=== PATIENT | male | born 1970 | race Caucasian/White ===

== ENCOUNTER 2018-04-08 16:46 | Observation (INO) ==
[2018-04-08 17:15] LABS: Hematocrit 49.5 % (42.0-52.0); Hemoglobin 18.1 gm/dL (13.5-18.0); Mean Cell Volume 83.5 fl (78-100); Mean Corpuscular Hemoglobin 30.5 pg (27-31); Mean Corpuscular Hgb Conc 36.6 g/dl (32-36); Mean Platelet Volume 8.9 fl (8-11.3); Neutrophil # 8.1 K/mm3 (1.3-6.0); Neutrophil % 70.4 % (42-75.0); Platelet Count 165 K/mm3 (150-450); Red Blood Count 5.93 M/mm3 (4.7-6.0); Red Cell Distribution Width 12.8 % (11.5-14.0); White Blood Count 11.5 K/mm3 (4.0-10.5)
[2018-04-08] MEDS ORDERED: ASPIRIN 81 MG TAB.CHEW PO ONE (17:25)
[2018-04-08] MEDS ORDERED: NITROGLYCERIN 0.4 MG/TAB BTL SL ONE ×3 (17:25→17:52)
[2018-04-08 17:26] LABS: Prothrombin Time (Patient) 10.7 Seconds (9.0-11.0)
[2018-04-08 17:32] LABS: ALT 73 U/L (19-67); AST 39 U/L (0-48); Albumin * 4.2 gm/dl (3.4-5.0); Alkaline Phosphatase * 79 U/L (50-170); Anion Gap 15.1 mmol/L (6.8-13.8); BUN/Creatinine Ratio 18.9 (9.0-21.6); Blood Urea Nitrogen 14 mg/dL (6-23); Ca. Corrected For Albumin 8.6 mg/dL (8.4-10.2); Calcium * 9.1 mg/dL (7.9-10.9); Carbon Dioxide 23.7 mmol/L (24-32.6); Chloride 102 mmol/L (97-106); Glucose * 231 mg/dL (70-110); Potassium 3.8 mmol/L (3.4-4.6); Sodium 137 mmol/L (132-142); Total Protein 7.6 gm/dL (6.2-8.2)
[2018-04-08 17:33] LABS: Troponin I Less than 0.017 ng/mL (0.00-0.10)
--- NOTE | 2018-04-08 17:33 | ERNOTE ---
Chest Pain/Cardiac HPI Chief Complaint: Chest Pain Time Seen by Provider: 04/08/18 17:19 Source: patient Exam Limitations: no limitations Immunizations: IMMUNIZATION HX Immunizations Up to Date Yes History of Influenza Vaccine No Hx Pneumococcal Vaccination No Allergies/Adverse Reactions: Allergies No Known Allergies Allergy (Verified 03/16/18 12:16) Home Medications: HOME MEDICATIONS glipizide 5 mg tablet 5 mg PO BID 03/16/18 [Last Taken Unknown] metformin 1,000 mg tablet 1,000 mg PO BID 03/16/18 [Last Taken Unknown] Sildenafil Citrate [Viagra] 25 mg PO PRN PRN 04/08/18 [Last Taken Unknown] Narrative: Patient has had chest pain on and off for about a week, the pain had resolved intermittently but started today at 11:00 and has stayed since, rates it at 4/10 (the worst it has been), pressure like, with radiation to his shoulder, slight nausea and shortness of breath. He never had a cardiac evaluation, has not taken viagra since 03/30. He saw a urologist for a genital rash earlier today, not sure about the diagnosis but he is being treated with a cream. Date (Duration): 04/08/18 Time (Timing): 11:00 Timing: constant, getting worse Severity/Quality: moderate, pressure Location: central Chest Pain Radiation: shoulders Activities at Onset: none Modifying Factors - Improves: Present: nothing. Absent: breathing, position, movement, rest Modifying Factors - Worsens: Present: nothing Nitro Today/Relief: no nitro taken today Aspirin Treatment Today: no aspirin today Associated Symptoms: Present: nausea. Absent: headache, dizziness, shortness of breath, vomiting, abdominal pain, weakness Prior Chest Pain/Cardiac Workup: Reports: prior chest pain - years ago, no prior cardiac workup Prior Treatment: Reports: recently seen, currently on antibiotics Review of Systems - Review of Systems Constitutional: Absent: recent illness, fever, chills ENT: Absent: nose congestion, sore throat Respiratory: Absent: shortness of breath Cardiology: Present: chest pain. Absent: palpitations Gastrointestinal/Abdominal: Present: nausea. Absent: vomiting, diarrhea, abdominal pain Genitourinary: Present: See HPI, other Musculoskeletal: Absent: back pain Neurological: Absent: headache Medical History (Last Reviewed 04/08/18 @ 17:31 by Gertrudis Armenta MD) Constipation Onset Date: Unknown Diabetes type 2, controlled Onset Date: Unknown Skin cancer Onset Date: Unknown Surgical History: Surgical History (Last Reviewed 04/08/18 @ 17:31 by Gertrudis Armenta MD) Previous back surgery Onset Date: Unknown Family History: Family History (Last Reviewed 04/08/18 @ 16:54 by Danny Cordova RN) Mother Cancer Grandfather Cancer Social History: Preferred Language [place] Islander Smoking Status Former smoker Abuse History No History of abuse Psych History No pertinent hx Alcohol Use occasionally Drug Use none (Last Updated 03/16/18 @ 13:16 by DEVANG Gupta) No Social History Section defined Physical Exam - Physical Exam General Appearance: Present: wd/wn, alert, no apparent distress Head Exam: Present: normal inspection Eye Exam: Normal inspection: bilateral Ears, Nose, Throat: Present: normal pharynx Respiratory: Present: no respiratory distress, normal breath sounds, no accessory muscle use, chest nontender, lungs clear Cardiovascular/Chest: Present: regular rate, rhythm, no murmur Gastrointestinal/Abdominal: Present: nontender Extremity Exam: Present: no edema Neurological Exam: Present: alert, oriented, normal mood/affect Skin Exam: Present: normal color, warm/dry Progress - Results and Orders Patient's Lab Results:: I have reviewed the patient's lab results. - Vital Signs Patient's Vital Signs:: I have reviewed the patient's vital signs. Vital Signs: Vital Signs 04/08/18 16:47 Temperature 36.6 C Pulse Rate 99 Respiratory Rate 15 Blood Pressure 197/103 H O2 Sat by Pulse Oximetry 98 - EKG EKG: NSR - sinustachyacardia, other - poor R-progression over anterior leads, no acute changes, no prior available EKG read: Interp. by me - X-Ray X-Ray #1 X-Ray: chest - noacute changes Interpretation: Interp. by me - Progress/Reassessment Chief Complaint: Chest Pain Progress Note-Subjective: 04/08/18 17:39 minimal relieve with nitro (from 4/10 to 3-4/10) 04/08/18 17:46 pain 2/10 after second nitro discussed test results and limits of test to rule out CAD, offered admission, patient agreed 04/08/18 17:55 patient's pain almost gone after 3rd nitro 04/08/18 17:[address] Garcia, accepted patient for observation admission Departure Clinical Impression: Chest pain Qualifiers: Chest pain type: precordial pain Qualified Code(s): R07.2 - Precordial pain - Departure Disposition: Still a patient Condition: Good
[2018-04-08 17:34] LABS: INR 1.07 INR (0.90-1.10)
[2018-04-08] MEDS ORDERED: ROSUVASTATIN CALCIUM 20 MG TABLET PO STA (18:13)
[2018-04-08] MEDS ORDERED: NITROGLYCERIN 0.4 MG/TAB BTL SL PRN (18:28)
--- NOTE | 2018-04-08 18:58 | HP ---
Chief Complaint - Chief Complaint Date of Service: 04/08/18 Time of Service: 18:40 Chief Complaint: chest pain Medical History (Last Reviewed 04/08/18 @ 17:31 by Gertrudis Armenta MD) Constipation Onset Date: Unknown Diabetes type 2, controlled Onset Date: Unknown Skin cancer Onset Date: Unknown Surgical History: Surgical History (Last Reviewed 04/08/18 @ 17:31 by Gertrudis Armenta MD) Previous back surgery Onset Date: Unknown Family History: Family History (Last Reviewed 04/08/18 @ 16:54 by Danny Cordova RN) Mother Cancer Grandfather Cancer Social History: Preferred Language Bel[place]ian Smoking Status Former smoker Abuse History No History of abuse Psych History No pertinent hx Alcohol Use occasionally Drug Use none (Last Updated 03/16/18 @ 13:16 by DEVANG Gupta) No Social History Section defined Review Of Systems (GEN) - Review of Systems Respiratory: Present: Shortness of Breath Cardiac: Present: Chest Pain Abdominal: Absent: Vomiting, Abdominal Pain Musculoskeletal: Present: Muscle Pain, Other Immunizations: IMMUNIZATION HX Immunizations Up to Date Yes History of Influenza Vaccine No Hx Pneumococcal Vaccination No Allergies/Adverse Reactions: Allergies Allergy/AdvReac Type Severity Reaction Status Date / Time No Known Allergies Allergy Verified 03/16/18 12:16 Home Medications: HOME MEDICATIONS glipizide 5 mg tablet 5 mg PO BID 03/16/18 [Last Taken Unknown] metformin 1,000 mg tablet 1,000 mg PO BID 03/16/18 [Last Taken Unknown] Sildenafil Citrate [Viagra] 25 mg PO PRN PRN 04/08/18 [Last Taken Unknown] Exam - Exam Vital Signs: Vital Signs - Last Taken Temp 36.6 C 04/08/18 16:47 Pulse 96 04/08/18 17:56 Resp 11 L 04/08/18 17:56 BP 146/86 H 04/08/18 17:56 Pulse Ox 95 04/08/18 17:56 Constitutional: Present: Alert, Oriented x3, Cooperative, Well developed, Well nourished, No distress ENT Exam: Present: hearing grossly normal Neck: Present: non-tender, supple, trachea midline. Absent: lymphadenopathy (R), lymphadenopathy (L) Respiratory: Present: lungs clear, no respiratory distress. Absent: crackles, rhonchi, wheezing Cardiovascular/Chest: Present: regular rate, rhythm, no chest tenderness, no murmur Peripheral Pulses: dorsalis-pedis (R): 2+, dorsalis-pedis (L): 2+ Abdomen: Present: Normal bowel sounds, soft, nontender, obese Extremity: Present: no pedal edema Skin Exam: Present: normal color Appearance: Present: appropriate appearance, appropriate insight Eye contact: Present: cooperative Diagnostic Studies: Abnormal Lab Results 04/08/18 04/08/18 Range/Units 17:14 17:14 WBC 11.5 H (4.0-10.5) K/mm3 Hgb 18.1 H (13.5-18.0) gm/dL MCHC 36.6 H (32-36) g/dl Immature Gran # (Auto) 0.05 H (0.000-0.0310) K/mm3 Neutrophils # 8.1 H (1.3-6.0) K/mm3 Carbon Dioxide 23.7 L (24-32.6) mmol/L Anion Gap 15.1 H (6.8-13.8) mmol/L Random Glucose 231 H (70-110) mg/dL ALT 73 H (19-67) U/L Laboratory Results WBC 11.5 K/mm3 (4.0-10.5) H 04/08/18 17:14 RBC 5.93 M/mm3 (4.7-6.0) 04/08/18 17:14 Hgb 18.1 gm/dL (13.5-18.0) H 04/08/18 17:14 Hct 49.5 % (42.0-52.0) 04/08/18 17:14 MCV 83.5 fl (78-100) 04/08/18 17:14 MCH 30.5 pg (27-31) 04/08/18 17:14 MCHC 36.6 g/dl (32-36) H 04/08/18 17:14 RDW 12.8 % (11.5-14.0) 04/08/18 17:14 Plt Count 165 K/mm3 (150-450) 04/08/18 17:14 MPV 8.9 fl (8-11.3) 04/08/18 17:14 Immature Gran % (Auto) 0.40 % (0.001-0.429) 04/08/18 17:14 Immature Gran # (Auto) 0.05 K/mm3 (0.000-0.0310) H 04/08/18 17:14 Neutrophils % 70.4 % (42-75.0) 04/08/18 17:14 Lymphocytes % 20.4 % (20-51) 04/08/18 17:14 Monocytes % 6.0 % (0.0-9) 04/08/18 17:14 Eosinophils % 2.1 % (0.0-3.0) 04/08/18 17:14 Basophils % 0.7 % (0.0-1.0) 04/08/18 17:14 Nucleated RBC % 0.0 k/mm3 (0-1) 04/08/18 17:14 Neutrophils # 8.1 K/mm3 (1.3-6.0) H 04/08/18 17:14 Lymphocytes # 2.34 k/mm3 (1.5-3.5) 04/08/18 17:14 Monocytes # 0.7 k/mm3 (0.0-1.0) 04/08/18 17:14 Eosinophils # 0.2 k/mm3 (0.0-0.7) 04/08/18 17:14 Absolute Basophils 0.1 k/mm3 (0.0-0.1) 04/08/18 17:14 PT 10.7 Seconds (9.0-11.0) 04/08/18 17:14 INR (Anticoag Therapy) 1.07 INR (0.90-1.10) 04/08/18 17:14 PTT (Gena) 25.0 Seconds (24-32) 04/08/18 17:14 Sodium 137 mmol/L (132-142) 04/08/18 17:14 Plasma Sodium 139 mmol/L (130-142) 04/08/18 17:14 Potassium 3.8 mmol/L (3.4-4.6) 04/08/18 17:14 Chloride 102 mmol/L (97-106) 04/08/18 17:14 Carbon Dioxide 23.7 mmol/L (24-32.6) L 04/08/18 17:14 Anion Gap 15.1 mmol/L (6.8-13.8) H 04/08/18 17:14 BUN 14 mg/dL (6-23) 04/08/18 17:14 Creatinine 0.74 mg/dL (0.4-1.4) 04/08/18 17:14 Est GFR (Non-Af Amer) 119 mL/min (60-130) 04/08/18 17:14 BUN/Creatinine Ratio 18.9 (9.0-21.6) 04/08/18 17:14 Random Glucose 231 mg/dL (70-110) H 04/08/18 17:14 Calcium 9.1 mg/dL (7.9-10.9) 04/08/18 17:14 Calcium Adj for Albumin 8.6 mg/dL (8.4-10.2) 04/08/18 17:14 Total Bilirubin 1.0 mg/dL (0.0-1.1) 04/08/18 17:14 AST 39 U/L (0-48) 04/08/18 17:14 ALT 73 U/L (19-67) H 04/08/18 17:14 Alkaline Phosphatase 79 U/L (50-170) 04/08/18 17:14 Troponin I Less than 0.017 ng/mL (0.00-0.10) 04/08/18 17:14 Total Protein 7.6 gm/dL (6.2-8.2) 04/08/18 17:14 Albumin 4.2 gm/dl (3.4-5.0) 04/08/18 17:14 Assessment/Plan - Narrative Narrative: This is a 48-year-old male with a past medical history of diabetes mellitus type 2 who presents with a one-week history of chest pain. Symptoms have been intermittent. However today around 11:00 AM he began to notice worsening chest pain. Chest pain is substernal and radiates to his left shoulder. Pain is described as pressure like, rated 4 out of 10 at its worst. In the emergency department the patient received 3-4 doses of sublingual nitroglycerin with good relief of his pain. Currently the pain is 1 to 2 out of 10. Patient states that he experienced some mild shortness of breath. He denies any feelings of heartburn. Patient will be admitted per the chest pain protocol for further monitoring and evaluation. Currently troponins are negative. - Assessment/Plan (1) Chest pain Assessment: Patient has received 1 dose of statin, 1 dose of aspirin, 3-4 doses of nitroglycerin while in the emergency department with good relief of his symptoms. We will continue with the chest pain protocol. With serial EKGs and troponin and and monitoring every 6 hours. Supplemental oxygen as needed to maintain his O2 sat above 94%. Lipid profile in the morning. Problem: Acute Qualifiers: Chest pain type: precordial pain Qualified Code(s): R07.2 - Precordial pain (2) Diabetes mellitus Assessment: We will hold his diabetic medications at this time. We will start him on fingersticks and insulin per protocol. Problem: Chronic Qualifiers: Diabetes mellitus type: type 2 Diabetes mellitus manager long term care insulin use: without assisted use
[2018-04-08] MEDS: glipiZIDE 5 MG TABLET PO SCH (22:11)
[2018-04-09] MEDS: glipiZIDE 5 MG TABLET PO SCH (07:03)
[2018-04-09 07:05] LABS: Hematocrit 46.6 % (42.0-52.0); Hemoglobin 16.6 gm/dL (13.5-18.0); Mean Cell Volume 84.4 fl (78-100); Mean Corpuscular Hemoglobin 30.1 pg (27-31); Mean Corpuscular Hgb Conc 35.6 g/dl (32-36); Mean Platelet Volume 9.1 fl (8-11.3); Neutrophil # 4.4 K/mm3 (1.3-6.0); Neutrophil % 54.1 % (42-75.0); Platelet Count 142 K/mm3 (150-450); Red Blood Count 5.52 M/mm3 (4.7-6.0); Red Cell Distribution Width 12.8 % (11.5-14.0); White Blood Count 8.2 K/mm3 (4.0-10.5)
[2018-04-09 07:21] LABS: Albumin * 3.4 gm/dl (3.4-5.0); Anion Gap 13.5 mmol/L (6.8-13.8); Ca. Corrected For Albumin 8.7 mg/dL (8.4-10.2); Calcium * 8.5 mg/dL (7.9-10.9); Carbon Dioxide 27.1 mmol/L (24-32.6); Potassium 3.6 mmol/L (3.4-4.6); Total Protein 6.4 gm/dL (6.2-8.2)
--- NOTE | 2018-04-09 11:04 | DS ---
(1) Chest pain Diagnosis(s): Resolved, no signs of acute coronary syndrome. Symptoms likely secondary to stable angina pectoris. Cardiac enzymes and EKG remained within normal limits. He will follow-up with his PCP within 1 week of discharge. Stress test may be indicated as an outpatient. Problem: Acute Qualifiers: Chest pain type: precordial pain Qualified Code(s): R07.2 - Precordial pain (2) Diabetes mellitus Diagnosis(s): Stable continue with home medication regimen. 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 The pain had been intermittent for 1 week on the day of presentation the pain began in the morning and was lasting approximately 45 minutes the pain was described as a pressure-like sensation. He states he was not exerting himself at the time the pain began he decided to come to the emergency department. He was admitted for observation and chest pain protocol was performed with serial EKGs and cardiac enzymes. He received 3 doses of nitroglycerin with relief of his symptoms. Cardiac enzymes remained negative, chest pain completely resolved. Symptoms likely secondary to stable angina pectoris. He will follow-up with his primary care physician within a week of discharge and may be a good candidate for outpatient stress test. Procedures Performed: none Results and Findings: Lab Pending Results 04/08/18 17:14: WBC 11.5 H, RBC 5.93, Hgb 18.1 H, Hct 49.5, MCV 83.5, MCH 30.5, MCHC 36.6 H, RDW 12.8, Plt Count 165, MPV 8.9, Immature Gran % (Auto) 0.40, Immature Gran # (Auto) 0.05 H, Neutrophils % 70.4, Lymphocytes % 20.4, Monocytes % 6.0, Eosinophils % 2.1, Basophils % 0.7, Nucleated RBC % 0.0, Neutrophils # 8.1 H, Lymphocytes # 2.34, Monocytes # 0.7, Eosinophils # 0.2, Absolute Basophils 0.1 04/08/18 17:14: PT 10.7, INR (Anticoag Therapy) 1.07, PTT (Gena) 25.0 04/08/18 17:14: Sodium 137, Plasma Sodium 139, Potassium 3.8, Chloride 102, Carbon Dioxide 23.7 L, Anion Gap 15.1 H, BUN 14, Creatinine 0.74, Est GFR (Non- Af Amer) 119, BUN/Creatinine Ratio 18.9, Random Glucose 231 H, Calcium 9.1, Calcium Adj for Albumin 8.6, Total Bilirubin 1.0, AST 39, ALT 73 H, Alkaline Phosphatase 79, Troponin I Less than 0.017, Total Protein 7.6, Albumin 4.2 04/09/18 00:15: Troponin I Less than 0.017 04/09/18 06:00: WBC 8.2 D, RBC 5.52, Hgb 16.6, Hct 46.6, MCV 84.4, MCH 30.1, MCHC 35.6, RDW 12.8, Plt Count 142 L, MPV 9.1, Immature Gran % (Auto) 0.40, Immature Gran # (Auto) 0.03, Neutrophils % 54.1, Lymphocytes % 30.2, Monocytes % 9.5 H, Eosinophils % 4.8 H, Basophils % 1.0, Nucleated RBC % 0.0, Neutrophils # 4.4, Lymphocytes # 2.47, Monocytes # 0.8, Eosinophils # 0.4, Absolute Basophils 0.1 04/09/18 07:00: Sodium 141, Plasma Sodium 142, Potassium 3.6, Chloride 104, Carbon Dioxide 27.1, Anion Gap 13.5, BUN 20, Creatinine 0.77, Est GFR (Non-Af Amer) 114, BUN/Creatinine Ratio 26.0 H, Random Glucose 176 H, Calcium 8.5, Calcium Adj for Albumin 8.7, Total Bilirubin 1.0, AST 50 H, ALT 72 H, Alkaline Phosphatase 64, Total Protein 6.4, Albumin 3.4, Triglycerides 168, Cholesterol 170, LDL Cholesterol 108, VLDL Cholesterol 34, HDL Cholesterol 28 L, Cholestero l/HDL Ratio 6.0 H Discharge Location: Home Disposition: Home self-care Condition: Good Discharge Activity: Activity as tolerated Discharge Diet: Consistent carbs Referrals: Vanita Garcia ARNP [Primary Care Provider] - Complete Home Medications List: Complete Home Medication List: glipizide 5 mg tablet 5 mg PO BID 03/16/18 metformin 1,000 mg tablet 1,000 mg PO BID 03/16/18 Sildenafil Citrate [Viagra] 25 mg PO PRN PRN 04/08/18
[2018-04-09 11:19] VITALS: BP 136/86
== END 2018-04-09 11:25 | disposition home or self-care (01) ==
LOC: MS 16:46 → ER 16:46 → MS 18:35
PROVIDERS: ADMIT Internal Medicine; ATTEND Internal Medicine
CPT/HCPCS: 36415; 71020; 71046; 80053; 80061; 84484; 85025; 85610; 85730; 93005; 99285; G0378